=== PATIENT | female | born 1975 | race Two or more races ===

== ENCOUNTER 2024-07-15 05:30 | Day surgery (SDC) | payer OTHER ==
[2024-06-27 11:01] VITALS: BP 101/66
[~2024-07-15] VITALS: Ht 160 cm; Wt 63.5 kg
[~2024-07-15 05:30] MED LIST: ALDOMET500 MG; ANAPROX275 MG; CRESTOR40 MG PO; FOLIC ACID0.4 MG; GABAPENTIN ER600 MG PO; LEVSIN0.125 MG PO; LOSARTAN-HCTZ1 EAC1 PO; NEURONTIN800 MG; PROTONIX40 MG PO; ZANTAC300 MG PO
[2024-07-15] MEDS ORDERED: CEFAZOLIN SODIUM 1,000 MG VIAL ONE (06:57)
[2024-07-15] MEDS ORDERED: BUPIVACAINE HCL/Mpf 0.5% 10ML VIAL ONE (07:15)
[2024-07-15] MEDS ORDERED: MORPHINE SULFATE 4 MG/ML VIAL IV ONE ×3 (08:35→09:20)
== END 2024-07-15 13:20 | disposition home or self-care (01) ==
LOC: CIR.AMB 05:30
PROVIDERS: ATTEND Orthopaedic Surgery Hand Surgery
DX: G56.02 Carpal tunnel syndrome, left upper limb (principal); I10 Essential (primary) hypertension; M79.7 Fibromyalgia; G62.9 Polyneuropathy, unspecified; J45.909 Unspecified asthma, uncomplicated